=== PATIENT | male | born 2000 | race African-American/Black ===

== ENCOUNTER 2025-09-10 19:45 | Emergency (ER) | payer SELFPAY ==
[2025-09-10 23:48] LABS: #Basophils Less than 0.03 10x3/uL (0.0-0.2); #Eosinophils 0.14 10x3/uL (0.0-0.5); #Monocytes 0.77 10x3/uL (0.0-1.1); #Neutrophils 5.79 10x3/uL (1.5-8.4); %Basophils 0.3 % (0.0-2.0); %Eosinophils 1.9 % (0.0-6.0); %Lymphocytes 10.4 % (18.0-47.0); %Monocytes 10.2 % (0.0-10.0); %Neutrophils 76.9 % (40.0-75.0); Hematocrit 35.7 % (38.8-50.0); Hemoglobin 12.3 g/dL (13.5-17.5); Mean Corpuscular Hemoglobin 29.1 pg (27.0-33.0); Mean Corpuscular Volume 84.6 fL (81.2-95.1); Platelet Count 216 10x3/uL (150-450); Red Blood Cell (RBC) Count 4.22 10x6/uL (4.32-5.72); White Blood Cell (WBC) Count 7.52 10x3/uL (3.5-10.5)
[2025-09-11 00:17] LABS: ALT (SGPT) 31 U/L (Less than 45); AST (SGOT) 25 U/L (11-34); Albumin 4.6 g/dL (3.1-4.5); Alkaline Phosphatase 83 U/L (40-110); Anion Gap 14 mmol/L (10-20); BUN (Urea Nitrogen) 12 mg/dL (8.9-20.6); Bilirubin, Total 0.5 mg/dL (0.3-1.2); Calc. Creatinine Clearance 0 mL/min (70-130); Calcium 10.3 mg/dL (7.8-10.44); Carbon Dioxide 24 mmol/L (22-29); Chloride 104 mmol/L (98-107); Globulin 3.6 g/dL (2.4-3.5); Glucose 99 mg/dL (70-105); Lipase 16 U/L (8-78); Potassium 3.8 mmol/L (3.5-5.1); Sodium 138 mmol/L (136-145); Troponin I Less than 0.010 ng/mL (< 0.028)
== END 2025-09-11 00:58 | disposition home or self-care (01) ==
LOC: CSHERS 19:45
DX: J06.9 Acute upper respiratory infection, unspecified (principal); R07.9 Chest pain, unspecified
CPT/HCPCS: 36415; 71045; 80053; 83690; 84484; 85025; 87428; 93005